=== PATIENT | female | born 1995 | race Caucasian/White ===

== ENCOUNTER 2018-11-11 23:47 | Emergency (ER) | payer SELFPAY ==
[2018-11-11 23:55] VITALS: BP 129/81; PULSE 85; TEMP 98.3; BMI 26.5
--- NOTE | 2018-11-12 02:58 | PDOC ---
Attending Attestation - Resident Resident Name: JonahAnkit - ED Attending Attestation I have performed the following: I have examined & evaluated the patient, The case was reviewed & discussed with the resident, I agree w/resident's findings & plan, Exceptions are as noted - HPI HPI: 11/12/18 04:49 23-year-old female with dysuria and urgency, patient denies flank pain nausea vomiting or fever. She denies vaginal discharge. Symptoms were abrupt in onset. - Physicial Exam PE: Agree with resident exam - Medical Decision Making 11/12/18 04:58 BNP normal. 23-year-old female with dysuria, urinalysis consistent with urinary tract infection Patient will be discharged home on antibiotics and Pyridium with instructions to return should she develop vomiting flank pain or fever Impression cystitis
--- NOTE | 2018-11-12 03:25 | PDOC ---
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 Denies abdominal pain, flank pain, fevers, nausea, vomiting, and diarrhea. LMP was 2 weeks ago. Shx: None Past History - Past Medical History Allergies/Adverse Reactions: Allergies Allergy/AdvReac Type Severity Reaction Status Date / Time No Known Allergies Allergy Verified 09/14/16 13:38 Home Medications: Ambulatory Orders Sulfamethoxazole/Trimethoprim [Bactrim Ds -] 1 tab PO BID #6 tablet 11/12/18 - Immunization History Immunization Up to Date: Yes - Suicide/Smoking/Psychosocial Hx Smoking History: Never smoked Have you smoked in the past 12 months: No Number of Cigarettes Smoked Daily: 0 Cigars Per Day: 0 Hx Alcohol Use: No Drug/Substance Use Hx: No Review of Systems - Review of Systems Able to Perform ROS?: Yes Is the patient limited [place] proficient: No Constitutional: No: Chills, Diaphoresis, Fever, Weakness HEENTM: No: Recent change in vision, Ear Pain, Nose Pain, Throat Pain, Mouth Pain Respiratory: No: Cough, Shortness of Breath, SOB with Exertion Cardiac (ROS): No: Chest Pain, Lightheadedness, Palpitations, Syncope, Chest Tightness ABD/GI: No: Constipated, Diarrhea, Nausea, Rectal Bleeding, Vomiting, Tarry Stools : Yes: Dysuria. No: Hematuria, Urgency Musculoskeletal: No: Back Pain, Joint Pain, Neck Pain Integumentary: No: Bruising, Dryness, Erythema, Pruritus, Rash Neurological: No: Headache, Numbness, Tingling, Tremors, Ataxia, Dizziness Psychiatric: No: Change in Appetite Endocrine: No: Unexplained Weight Gain Hematologic/Lymphatic: No: Anemia *Physical Exam - Vital Signs Last Vital Signs Temp Pulse Resp BP Pulse Ox 98.3 F 85 18 129/81 99 11/11/18 23:48 11/11/18 23:48 11/11/18 23:48 11/11/18 23:48 11/11/18 23:48 - Physical Exam General Appearance: Yes: Nourished, Appropriately Dressed. No: Apparent Distress, Intoxicated, Thin HEENT: positive: EOMI, DOREEN, Normal Voice, Symmetrical, Pharynx Normal, Hearing Grossly Normal. negative: Pale Conjunctivae, Scleral Icterus (R), Scleral Icterus (L), Muffled/Hoarse voice, Pharyngeal Erythema, Tonsillar Exudate, Tonsillar Erythema, Nasal Congestion, Rhinorrhea, Sinus Tenderness, Excessive drooling Neck: positive: Trachea midline. negative: Tender, Lymphadenopathy (R), Lymphadenopathy (L), Tender lateral, Tender midline Respiratory/Chest: positive: Lungs Clear, Normal Breath Sounds. negative: Chest Tender, Respiratory Distress, Accessory Muscle Use Cardiovascular: positive: Regular Rhythm, Regular Rate. negative: S1, S2, Systolic Murmur Gastrointestinal/Abdominal: positive: Normal Bowel Sounds, Flat, Soft. negative : Tender, Rebound, Tenderness, Hernia Lymphatic: negative: Adenopathy Musculoskeletal: positive: Normal Inspection, CVA Tenderness. negative: Vertebral Tenderness Extremity: positive: Normal Capillary Refill, Normal Inspection, Normal Range of Motion. 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 Initial vitals: Initial Vital Signs Temp Pulse Resp BP Pulse Ox 98.3 F 85 18 129/81 99 11/11/18 23:48 11/11/18 23:48 11/11/18 23:48 11/11/18 23:48 11/11/18 23:48 Work up: ddx: cysitits vs UTI vs nephrolithiasis Laboratory Tests 11/12/18 03:19 Urine Color Yellow Urine Appearance Cloudy Urine pH 6.0 Ur Specific [place] 1.013 Urine Protein 2+ H Urine Glucose (UA) Negative Urine Ketones Negative Urine Blood 2+ H Urine Nitrite Negative Urine Bilirubin Negative Urine Urobilinogen Negative Ur Leukocyte Esterase 3+ H Urine WBC (Auto) 373 Urine RBC (Auto) 34 Ur Epithelial Cells Rare Urine Bacteria Rare Urine Mucus Few Urine HCG, Qual Negative UA shows infection. given abx for outpatient use and return precautions. agreed to follow up with PMD within 1 week. Dispo: Discharge *DC/Admit/Observation/Transfer Diagnosis at time of Disposition: UTI (urinary tract infection) Qualifiers: Urinary tract infection type: site unspecified Hematuria presence: without hematuria Qualified Code(s): N39.0 - Urinary tract infection, site not specified - Discharge Dispostion Disposition: HOME Decision to Admit order: No - Prescriptions Prescriptions: Sulfamethoxazole/Trimethoprim [Bactrim Ds -] 1 tab PO BID #6 tablet - Referrals Referrals: [facility] [place] [facility] [place] [Provider Group] - Patient Instructions Printed Discharge Instructions: DI for Urinary Tract Infection (UTI) Additional Instructions: take antibiotics as prescribed. please follow up with the primary medical group referred to you in 3 days for follow up care. return to the emergency department if you have worsening symptoms or new concerning symptoms. thank you. - Post Discharge Activity Forms/Work/School Notes: Back to Work
[2018-11-12 04:00] LABS: URINE APPEARANCE CLOUDY; URINE BILIRUBIN NEGATIVE (<2.0 mg/dL); URINE COLOR YELLOW; URINE GLUCOSE (UA) NEGATIVE (NEGATIVE); URINE KETONE NEGATIVE (NEGATIVE); URINE LEUK ESTERASE 3+ (NEGATIVE); URINE NITRITE NEGATIVE (NEGATIVE); URINE PROTEIN 2+ (NEGATIVE); URINE UROBILINOGEN NEGATIVE mg/dL (0.2-1.0)
[2018-11-12 04:09] LABS: HCG,QUALITATIVE URINE Negative
[2018-11-12 04:19] LABS: EPI CELLS RARE /HPF (FEW); URINE BACTERIA RARE /hpf (NONE SEEN); URINE MUCUS FEW
== END 2018-11-12 06:33 | disposition home or self-care (01) ==
LOC: JER 23:47
DX: N39.0 Urinary tract infection, site not specified (principal)
CPT/HCPCS: 81003; 81015; 84703; 87086; 87186; 99281-25